=== PATIENT | female | born 1990 | race African-American/Black ===

== ENCOUNTER 2016-07-04 09:46 | Outpatient (CLI) | payer OTHER ==
[~2016-07-04 09:46] MED LIST: PERCOCET1 TA1 PO; ZANTAC 150 MAX150 MG PO
--- NOTE | 2016-07-04 10:56 | DIAGNOSTIC IMAGING REPORT ---
PROCEDURE: US OB 1ST TRIMESTER W/TRANSVAG INDICATION: OB dates TECHNIQUE: Shelby scale, color, and spectral Doppler transabdominal sonographic images of the first trimester gravid uterus were obtained. COMPARISON: None. FINDINGS: TRANSABDOMINAL SCANS: The gravid uterus is anteverted in position and contains a fundal gestational sac with a moderate residual response. No perigestational hemorrhage. The cervix is closed. A pole with an average crown-rump length of 7 mm is present. There is detectable cardiac activity in the fetus in a rate of 117 beats per minute. A yolk sac was visible. Maternal ovaries appear normal. Trace free pelvic fluid in the cul-de-sac. IMPRESSION: 1. Single living intrauterine with gestational age of 6 weeks and 4-day and estimated due date of 02/23/2017 2. Closed cervix and no perigestational hemorrhage.
== END 2016-07-04 23:00 ==
LOC: US SRH 09:46
DX: Z34.91 Encounter for supervision of normal pregnancy, unspecified, first trimester (principal); Z3A.01 Less than 8 weeks gestation of pregnancy

== ENCOUNTER 2016-08-25 21:30 | Emergency (ER) | payer OTHER ==
--- NOTE | 2016-08-25 23:35 | ED CLINICAL REPORT ---
Clinical Report - Physicians/Mid Levels [facility] [address] [place] [address] 08/25/2016 21:31 Patient: YULIANA HERNANDEZ Time Seen: 21:39; initial patient contact. Arrived- By private vehicle. Historian- patient. HISTORY OF PRESENT ILLNESS Chief Complaint: VAGINAL BLEEDING. This started about 2 days ago and still present. The symptoms are described as mild. Modifying factors. Not worsened by anything. Not relieved by anything. The patient has had mild, crampy, intermittent abdominal pain. The pain is described as located in the lower abdomen and radiating to the back. No nausea, vomiting or diarrhea. She has had abnormal bleeding and a scant amount of vaginal discharge. Currently . Receiving care by private doctor ( U/S a month ago). Similar symptoms previously: None. Recent medical care: Not recently seen/assessed. REVIEW OF SYSTEMS No nausea, vomiting, diarrhea, fever or chills. She has had a headache. All systems otherwise negative, except as recorded above. PAST HISTORY ( Ovarian Cyst. ADDITIONAL SURGERIES: Knee Surgery). Medications: Unisom Oral. Omeprazole Oral. Vit b6 . Plus Iron Oral. Allergies: No Known Drug Allergy. SOCIAL HISTORY Never smoker. No alcohol use or drug use. ADDITIONAL NOTES The nursing notes have been reviewed. PHYSICAL EXAM Vital Signs: 08/25/2016 21:45 BP: 119/68. HR: 81. RR: 16. O2 saturation: 100%. Temp: 98.3 F. Pain level now: 5/10. Have been reviewed as normal. Appearance: Alert. Oriented X3. No acute distress. HEENT: Normal external inspection. CVS: Heart sounds normal. Rate normal. Rhythm normal. Respiratory: No respiratory distress. Breath sounds normal. Abdomen: Soft. Mild tenderness in the suprapubic area and left lower quadrant. Bowel sounds normal. No organomegaly. No mass. : External inspection normal. A scant amount of thin, yellow and bloody vaginal discharge present. No vaginal bleeding. Cervical os closed. No cervical dilation. No tissue present. No cervicitis. No tenderness present on bimanual exam. Uterus not enlarged. No uterine tenderness. No tenderness with movement of the cervix. No adnexal tenderness. No adnexal mass/fullness. No pelvic mass. (Female RN Chantale Bazan present for exam). Skin: Skin warm and dry. Normal skin color. Extremities: No lower extremity edema. Neuro: Oriented X 3. LABS, X-RAYS, AND EKG Laboratory Tests: UA-Culture if indicated: (JEAN-PIERRE: 08/25/2016 22:40) ( [facility] [place] 08/25/2016 23:01) Final results Test Result Flag Units (Reference) URINE COLOR YELLOW URINE APPEARANCE CLEAR URINE GLUCOSE NEGATIVE (NEGATIVE) URINE BILIRUBIN NEGATIVE (NEGATIVE) URINE KETONE NEGATIVE (NEGATIVE) URINE SPECIFIC GRAVITY 1.015 (1.010-1.030) URINE PH 6.5 (5.0-8.0) URINE PROTEIN NEGATIVE (NEGATIVE) URINE UROBILINOGEN 0.2 EU/dL (0.2-1.0) URINE NITRITE NEGATIVE (NEGATIVE) URINE BLOOD TRACE-INTACT (NEGATIVE) URINE LEUK ESTERASE NEGATIVE (NEGATIVE) URINE RBC 0-1 rbc/hpf (0-1) URINE WBC 0-1 wbc/hpf (0-1) URINE EPITHELIAL CELLS 1-3 EPI/hpf (0-5) URINE BACTERIA NONE SEEN (NONE SEEN) URINE COMMENT CULT NOT INDICATED 1+ AMORPHOUSURINE CULTURES ARE SET-UP BASED ON THE FOLLOWING CRITERIA:POSITIVE NITRITEPOSITIVE LEUKOCYTE ESTERASEGREATER THAN 10 WHITE BLOOD CELLSMODERATE (2+) OR GREATER BACTERIA CBC w Diff: (JEAN-PIERRE: 08/25/2016 22:00) ( [facility] [place] 08/25/2016 22:15) Final results Test Result Flag Units (Reference) WHITE BLOOD COUNT 10.9 K/uL (4.5-11.5) RED BLOOD COUNT 4.24 M/uL (4.00-5.20) HEMOGLOBIN 12.0 gm/dL (12.0-16.0) HEMATOCRIT 35.6 L % (36.0-46.0) MEAN CELL VOLUME 84 fL (80-100) MEAN CORPUSCULAR HGB 28 pg (26-34) MEAN CORPUSCULAR HGB CONC 34 g/dL (31-37) RED CELL DISTRIBUTION WIDTH 13.6 % (11.6-14.8) PLATELET COUNT 427 H K/uL (150-400) NEUTROPHIL % 62.3 % (50-75) LYMPH % 27.1 % (25-40) MONO % 7.4 % (3-14) EOSINOPHIL % 1.5 % (0-4) BASOPHIL % 1.7 % (0-2) CMP: (JEAN-PIERRE: 08/25/2016 22:00) ( MsgRcvd 08/25/2016 23:02) Final results Test Result Flag Units (Reference) GLUCOSE 85 mg/dL (70-110) BUN 9 mg/dL (7-18) CREATININE 0.7 mg/dL (0.6-1.3) Estimated GFR >60 mL/min Estimated GFR- >60 mL/min Note: Persistent reduction over 3 months in eGFR<60 mL/min/1.73 m2 defines CKD. Patients with eGFR values>=60 mL/min/1.73 m2 may also have CKD if evidence ofpersistent proteinuria. Additional information may be foundat www.[email or web address].org. SODIUM 138 mmol/L (136-145) POTASSIUM 4.2 mmol/L (3.5-5.1) CHLORIDE 103 mmol/L (98-107) CARBON DIOXIDE 26 mmol/L (21-32) CALCIUM 9.0 mg/dL (8.5-10.1) TOTAL PROTEIN 6.8 g/dL (6.4-8.2) ALBUMIN 3.0 L g/dL (3.3-5.0) BILIRUBIN, TOTAL 0.2 mg/dL (0.0-1.0) ALKALINE PHOSPHATASE 52 U/L (46-116) AST (SGOT) 14 L U/L (15-37) ALT (SGPT) 20 U/L (12-78) BETA HCG, QUANTITATIVE 52320 mIU/mL REFERENCE RANGE:Adult Males: <2 mIU/mLNon- Females: <6 mIU/mL Females:Approximate Approximate hCGGestational Age Range (mIU/mL) 0-1 week 0-501-2 weeks 40-3002-3 weeks 100-85907-3 weeks 500-66070-4 months 5,000-200,0002-3 months 10,000-100,0002nd trimester 3,000-50,0003rd trimester 1,000-50,000 Wet Prep: (JEAN-PIERRE: 08/25/2016 22:10) ( [facility] [place] 08/25/2016 22:40) Final results SPECIMEN DESCRIPTION: ... Test Result Flag Units (Reference) WET MOUNT CLUE CELLS:: RARE * EPITHELIAL CELLS: MANY -- SOURCE?: CERVIX WHITE BLOOD CELLS: MODERATE TRICHOMONAS:: NONE -- YEAST:: NONE Type & Rh: (JEAN-PIERRE: 08/25/2016 22:00) ( NcgRcvd 08/25/2016 22:33) Final results Test Result Flag Units (Reference) PATIENT BLOOD TYPE AB Positive . PROGRESS AND PROCEDURES Course of Care: Unable to obtain heart tones. Took full size U/S into room and FHT's 140 with positive movement. Disposition: Discharged home in good condition. Condition: good. CLINICAL IMPRESSION Acute mild bacterial vulvovaginitis INSTRUCTIONS Your Current Medications: CONTINUE TAKING THE FOLLOWING MEDICATIONS: Omeprazole Oral. Plus Iron Oral. Unisom Oral. Vit b6 *. Prescription Medications: Metronidazole 500 mg: Take 1 tablet orally every 12 hours for 7 days. No refill Follow-up: Follow up with your doctor in about two days. Call for an appointment. Screening today revealed the patient's blood pressure to be in the normal range. (Electronically signed by Frederick Mcneil Dr. 08/26/2016 4:30)
--- NOTE | 2016-08-25 23:35 | ED CLINICAL REPORT ---
Clinical Report - Physicians/Mid Levels [facility] [address] [place] [address] 08/25/2016 21:31 Patient: YULIANA HERNANDEZ Time Seen: 21:39; initial patient contact. Arrived- By private vehicle. Historian- patient. HISTORY OF PRESENT ILLNESS Chief Complaint: VAGINAL BLEEDING. This started about 2 days ago and still present. The symptoms are described as mild. Modifying factors. Not worsened by anything. Not relieved by anything. The patient has had mild, crampy, intermittent abdominal pain. The pain is described as located in the lower abdomen and radiating to the back. No nausea, vomiting or diarrhea. She has had abnormal bleeding and a scant amount of vaginal discharge. Currently . Receiving care by private doctor ( U/S a month ago). Similar symptoms previously: None. Recent medical care: Not recently seen/assessed. REVIEW OF SYSTEMS No nausea, vomiting, diarrhea, fever or chills. She has had a headache. All systems otherwise negative, except as recorded above. PAST HISTORY ( Ovarian Cyst. ADDITIONAL SURGERIES: Knee Surgery). Medications: Unisom Oral. Omeprazole Oral. Vit b6 . Plus Iron Oral. Allergies: No Known Drug Allergy. SOCIAL HISTORY Never smoker. No alcohol use or drug use. ADDITIONAL NOTES The nursing notes have been reviewed. PHYSICAL EXAM Vital Signs: 08/25/2016 21:45 BP: 119/68. HR: 81. RR: 16. O2 saturation: 100%. Temp: 98.3 F. Pain level now: 5/10. Have been reviewed as normal. Appearance: Alert. Oriented X3. No acute distress. HEENT: Normal external inspection. CVS: Heart sounds normal. Rate normal. Rhythm normal. Respiratory: No respiratory distress. Breath sounds normal. Abdomen: Soft. Mild tenderness in the suprapubic area and left lower quadrant. Bowel sounds normal. No organomegaly. No mass. : External inspection normal. A scant amount of thin, yellow and bloody vaginal discharge present. No vaginal bleeding. Cervical os closed. No cervical dilation. No tissue present. No cervicitis. No tenderness present on bimanual exam. Uterus not enlarged. No uterine tenderness. No tenderness with movement of the cervix. No adnexal tenderness. No adnexal mass/fullness. No pelvic mass. (Female RN Chantale Bazan present for exam). Skin: Skin warm and dry. Normal skin color. Extremities: No lower extremity edema. Neuro: Oriented X 3. LABS, X-RAYS, AND EKG Laboratory Tests: UA-Culture if indicated: (JEAN-PIERRE: 08/25/2016 22:40) ( [facility] [place] [place] 08/25/2016 23:01) Final results Test Result Flag Units (Reference) URINE COLOR YELLOW URINE APPEARANCE CLEAR URINE GLUCOSE NEGATIVE (NEGATIVE) URINE BILIRUBIN NEGATIVE (NEGATIVE) URINE KETONE NEGATIVE (NEGATIVE) URINE SPECIFIC GRAVITY 1.015 (1.010-1.030) URINE PH 6.5 (5.0-8.0) URINE PROTEIN NEGATIVE (NEGATIVE) URINE UROBILINOGEN 0.2 EU/dL (0.2-1.0) URINE NITRITE NEGATIVE (NEGATIVE) URINE BLOOD TRACE-INTACT (NEGATIVE) URINE LEUK ESTERASE NEGATIVE (NEGATIVE) URINE RBC 0-1 rbc/hpf (0-1) URINE WBC 0-1 wbc/hpf (0-1) URINE EPITHELIAL CELLS 1-3 EPI/hpf (0-5) URINE BACTERIA NONE SEEN (NONE SEEN) URINE COMMENT CULT NOT INDICATED 1+ AMORPHOUSURINE CULTURES ARE SET-UP BASED ON THE FOLLOWING CRITERIA:POSITIVE NITRITEPOSITIVE LEUKOCYTE ESTERASEGREATER THAN 10 WHITE BLOOD CELLSMODERATE (2+) OR GREATER BACTERIA CBC w Diff: (JEAN-PIERRE: 08/25/2016 22:00) ( [facility] [place]/25/2016 22:15) Final results Test Result Flag Units (Reference) WHITE BLOOD COUNT 10.9 K/uL (4.5-11.5) RED BLOOD COUNT 4.24 M/uL (4.00-5.20) HEMOGLOBIN 12.0 gm/dL (12.0-16.0) HEMATOCRIT 35.6 L % (36.0-46.0) MEAN CELL VOLUME 84 fL (80-100) MEAN CORPUSCULAR HGB 28 pg (26-34) MEAN CORPUSCULAR HGB CONC 34 g/dL (31-37) RED CELL DISTRIBUTION WIDTH 13.6 % (11.6-14.8) PLATELET COUNT 427 H K/uL (150-400) NEUTROPHIL % 62.3 % (50-75) LYMPH % 27.1 % (25-40) MONO % 7.4 % (3-14) EOSINOPHIL % 1.5 % (0-4) BASOPHIL % 1.7 % (0-2) CMP: (JEAN-PIERRE: 08/25/2016 22:00) ( MsgRcvd 08/25/2016 23:02) Final results Test Result Flag Units (Reference) GLUCOSE 85 mg/dL (70-110) BUN 9 mg/dL (7-18) CREATININE 0.7 mg/dL (0.6-1.3) Estimated GFR >60 mL/min Estimated GFR- >60 mL/min Note: Persistent reduction over 3 months in eGFR<60 mL/min/1.73 m2 defines CKD. Patients with eGFR values>=60 mL/min/1.73 m2 may also have CKD if evidence ofpersistent proteinuria. Additional information may be foundat [email or web address].org. SODIUM 138 mmol/L (136-145) POTASSIUM 4.2 mmol/L (3.5-5.1) CHLORIDE 103 mmol/L (98-107) CARBON DIOXIDE 26 mmol/L (21-32) CALCIUM 9.0 mg/dL (8.5-10.1) TOTAL PROTEIN 6.8 g/dL (6.4-8.2) ALBUMIN 3.0 L g/dL (3.3-5.0) BILIRUBIN, TOTAL 0.2 mg/dL (0.0-1.0) ALKALINE PHOSPHATASE 52 U/L (46-116) AST (SGOT) 14 L U/L (15-37) ALT (SGPT) 20 U/L (12-78) BETA HCG, QUANTITATIVE 30058 mIU/mL REFERENCE RANGE:Adult Males: <2 mIU/mLNon- Females: <6 mIU/mL Females:Approximate Approximate hCGGestational Age Range (mIU/mL) 0-1 week 0-501-2 weeks 40-3002-3 weeks 100-60539-6 weeks 500-80486-6 months 5,000-200,0002-3 months 10,000-100,0002nd trimester 3,000-50,0003rd trimester 1,000-50,000 Wet Prep: (JEAN-PIERRE: 08/25/2016 22:10) ( [facility] [place]/25/2016 22:40) Final results SPECIMEN DESCRIPTION: ... Test Result Flag Units (Reference) WET MOUNT CLUE CELLS:: RARE * EPITHELIAL CELLS: MANY -- SOURCE?: CERVIX WHITE BLOOD CELLS: MODERATE TRICHOMONAS:: NONE -- YEAST:: NONE Type & Rh: (JEAN-PIERRE: 08/25/2016 22:00) ( MdgRcvd 08/25/2016 22:33) Final results Test Result Flag Units (Reference) PATIENT BLOOD TYPE AB Positive . PROGRESS AND PROCEDURES Course of Care: Unable to obtain heart tones. Took full size U/S into room and FHT's 140 with positive movement. Disposition: Discharged home in good condition. Condition: good. CLINICAL IMPRESSION Acute mild bacterial vulvovaginitis INSTRUCTIONS Your Current Medications: CONTINUE TAKING THE FOLLOWING MEDICATIONS: Omeprazole Oral. Plus Iron Oral. Unisom Oral. Vit b6 *. Prescription Medications: Metronidazole 500 mg: Take 1 tablet orally every 12 hours for 7 days. No refill Follow-up: Follow up with your doctor in about two days. Call for an appointment. Screening today revealed the patient's blood pressure to be in the normal range. (Electronically signed by Frederick Mcneil Dr. 08/26/2016 4:30)
--- NOTE | 2016-08-25 23:35 | ED ORDER SUMMARY ---
..... Patient: YULIANA HERNANDEZ OrderSheet [facility] VisitID: [id number] [place] [address] 26y, F Registration Date/Time: 08/25/2016 ORDER SHEET Weight: 86.1 kg (stated) Allergies: No Known Drug Allergy GENERAL ORDERS: Serum Quantitative Urgent (21:56 08/25/2016 Roldan Garcia) (Ack 21:59 SRedmond) GC/Chlamydia (Cervix) (...) Urgent (21:56 08/25/2016 Roldan Garcia) (Ack 21:59 SRedmond) (22:42 TChapman R.N.) Wet Prep (Cervix) (...) Urgent (21:56 08/25/2016 Roldan Garcia) (Ack 21:59 SRedmond) (22:43 SRedmond) CBC w Diff Urgent (21:57 08/25/2016 Roldan Garcia) (Ack 21:59 SRedmond) (22:41 TChapman R.N.) CMP Urgent (21:57 08/25/2016 Roldan Garcia) (Ack 21:59 SRedmond) (23:10 TChapman R.N.) UA-Culture if indicated Urgent (21:57 08/25/2016 Roldan Garcia) (Ack 21:59 SRedmond) (23:01 TChapman R.N.) Type & Rh Urgent (21:57 08/25/2016 Roldan Garcia) (Ack 21:59 SRedmond) (22:44 SRedmond) Pelvic Exam Setup (21:57 08/25/2016 Roldan Garcia) (Ack 21:59 SRedmond) (22:25 SRedmond) MEDICATION ORDERS: Metronidazole PO 500 mg (NOW) (23:35 08/25/2016 Roldan Garcia) (Ack 23:36 TChapman R.N.) (23:40 TChapman R.N.) IV FLUIDS: IV Saline Lock (21:57 08/25/2016 Roldan Garcia) (22:08 TChapman R.N.) ORDER SHEET NOTES: [Electronically signed by Chantale Lopez R.N. (23:45 08/25/2016)] [Electronically signed by Frederick Mcneil Dr. (04:30 08/26/2016)] [Electronically locked/signed by Chantale Lopez R.N. (23:45 08/25/2016)]
--- NOTE | 2016-08-25 23:35 | ED ORDER SUMMARY ---
..... Patient: YULIANA HERNANDEZ OrderSheet [facility] VisitID: [id number] [place] [address] 26y, F Registration Date/Time: 08/25/2016 ORDER SHEET Weight: 86.1 kg (stated) Allergies: No Known Drug Allergy GENERAL ORDERS: Serum Quantitative Urgent (21:56 08/25/2016 Roldan Garcia) (Ack 21:59 SRedmond) GC/Chlamydia (Cervix) (...) Urgent (21:56 08/25/2016 Roldan Garcia) (Ack 21:59 SRedmond) (22:42 TChapman R.N.) Wet Prep (Cervix) (...) Urgent (21:56 08/25/2016 Roldan Garcia) (Ack 21:59 SRedmond) (22:43 SRedmond) CBC w Diff Urgent (21:57 08/25/2016 Roldan Garcia) (Ack 21:59 SRedmond) (22:41 TChapman R.N.) CMP Urgent (21:57 08/25/2016 Roldan Garcia) (Ack 21:59 SRedmond) (23:10 TChapman R.N.) UA-Culture if indicated Urgent (21:57 08/25/2016 Roldan Garcia) (Ack 21:59 SRedmond) (23:01 TChapman R.N.) Type & Rh Urgent (21:57 08/25/2016 Roldan Garcia) (Ack 21:59 SRedmond) (22:44 SRedmond) Pelvic Exam Setup (21:57 08/25/2016 Roldan Garcia) (Ack 21:59 SRedmond) (22:25 SRedmond) MEDICATION ORDERS: Metronidazole PO 500 mg (NOW) (23:35 08/25/2016 Roldan Garcia) (Ack 23:36 TChapman R.N.) (23:40 TChapman R.N.) IV FLUIDS: IV Saline Lock (21:57 08/25/2016 Roldan Garcia) (22:08 TChapman R.N.) ORDER SHEET NOTES: [Electronically signed by Chantale Lopez R.N. (23:45 08/25/2016)] [Electronically signed by Frederick Mcneil Dr. (04:30 08/26/2016)] [Electronically locked/signed by Chantale Lopez R.N. (23:45 08/25/2016)]
--- NOTE | 2016-08-25 23:35 | ED NURSING NOTES ---
Clinical Report - [facility] [place] [address] 08/25/2016 21:31 Patient: YULIANA HERNANDEZ TRIAGE Triage time 21:46. Chief Complaint: ABDOMINAL PAIN and CRAMPS and SPOTTING. --21:50 Chantale Lopez R.N. 21:45 08/25/16. BP: 119/68. HR: 81 (normal rate). RR: 16. O2 saturation: 100% on room air. Temp: 98.3 F (oral). Pain level now: 09/25. --21:50 Chantale Lopez R.N. Weight: 86.1 kg stated. Height/Length: 66 inches Per Patient. BMI: 30.7. --21:45 Chantale Lopez R.N. Medications Plus Iron Oral. --21:47 Chantale Lopez R.N. Vit b6 . --21:47 Chantale Lopez R.N. Omeprazole Oral. --21:47 Chantale Lopez R.N. Unisom Oral. --21:48 Chantale Lopez R.N. Allergies No Known Drug Allergy. --21:48 Chantale Lopez R.N. History Arrived by private vehicle. Historian: patient. Onset. (2 days). No vomiting or fever. PAST MEDICAL HX: The patient has had care. SOCIAL HX: Never smoker. No alcohol use or drug use. No infectious disease exposure. FALL RISK ASSESSMENT: Fall risk assessment completed. No fall risk identified. NUTRITIONAL RISK ASSESSMENT: The nutritional risk assessment revealed no deficiencies. FUNCTIONAL ASSESSMENT: Functional assessment: no impairments noted. LEARNING NEEDS ASSESSMENT: The learning needs assessment revealed no barriers. SKIN INTEGRITY ASSESSMENT: Skin integrity risk assessment completed. No skin integrity risk identified. --21:50 Chantale Lopez R.N. PROBLEMS: Ovarian Cyst. --21:48 Chantale Lopez R.N. ADDITIONAL SURGERIES: Knee Surgery. --21:49 Chantale Lopez R.N. PHYSICAL ASSESSMENT GENERAL / NEURO / PSYCH: Alert. Oriented X 4. Appears in no acute distress. HEENT: Mucous membranes are pink. RESPIRATORY: Respirations not labored. CVS: Capillary refill less than 2 seconds. GI / : Abdomen soft and nontender. Bowel sounds within normal limits. Vaginal bleeding present. EXTREMITIES: No lower extremity edema. SKIN: Skin is warm and dry. --21:50 Chantale Lopez R.N. Ambulatory to room. --21:50 Chantale Lopez R.N. NURSING PROGRESS NOTES The plan of care for this patient has been created. Patient gowned. Head of bed elevated. Call light placed in reach. Side rails up x 1. Bed placed in lowest position. Brakes of bed on. Patient ready for evaluation- ED physician notified. --21:50 Chantale Lopez R.N. 22:03 08/25/2016 Site #1 started via IV in the right antecubital space with an 22g angiocath, with aseptic technique; one attempt. Blood drawn: rainbow set. Saline lock flushed with 5 mL saline. --22:08 Chantale Lopez R.N. 20:10. PELVIC EXAM: Pelvic exam performed by ED physician. Assisted by a nurse. Preparation: pelvic tray and culture medium; patient placed in lithotomy position. Procedure: speculum and bimanual exam. Light amount of dark vaginal bleeding noted. Specimens collected and sent to lab: GC, chlamydia and wet prep. Status post-procedure: she was stable. Total time of assist / procedure: 15 minutes. --22:18 Chantale Lopez R.N. 22:43 08/25/16. Patient ID band checked for patient name and birthdate: patient confirmed. Instructions provided to collect clean catch urine and patient verbalized understanding. Clean catch urine collected with return of yellow-colored clear urine; sample sent to lab. Specimen labeled in the presence of the patient. --22:43 Chantale Lopez R.N. Bedside pelvic sonogram performed by ED physician. ( movement seen and Heart rate 140). --23:36 Chantale Lopez R.N. 23:40 08/25/2016 Metronidazole PO 500 mg given. Allergies verified and confirmed 5 rights. --23:40 Chantale Lopez R.N. 23:40 08/25/16. BP: 117/70. HR: 82. RR: 16. O2 saturation: 100%. Temp: 98.6 F. --23:43 Chantale Lopez R.N. DISPOSITION / DISCHARGE 23:44 08/25/16. BP: 117/70. HR: 80. RR: 16. O2 saturation: 100%. Temp: 98.6 F. --23:45 Chantale Lopez R.N. 23:40 08/25/2016 Site #1 removed upon discharge. Bandaid applied. --23:45 Chantale Lopez R.N. 23:44 08/25/16. Departure time: 2345. Condition at departure: unchanged. The goals identified in the patient's plan of care were met. No learning barriers present. Discharge instructions provided and reviewed with the patient. Reviewed medication(s) side effects and precautions information. Prescription(s) given to the patient. Patient verbalized understanding. Written instructions provided in Portuguese. The patient was discharged home and accompanied by sanitation worker. She left the Emergency Department ambulatory and via private vehicle. Spouse driving. --23:45 Chantale Lopez R.N. Locked/Released at 08/25/2016 23:46 by Chantale Lopez R.N.
--- NOTE | 2016-08-26 04:30 | ED MAR SUMMARY ---
..... Medication Administration Record [facility] [address] [place] [address] Patient: YULIANA HERNANDEZ Visit ID: [id number] 26y, F Weight: 86.1 kg Height/Length: 66 in BMI: 30.7 ALLERGIES: No Known Drug Allergy Given 23:40 08/25/2016 Chantale Lopez R.N. Medication Administered: METRONIDAZOLE [PO], Dose: 500 mg PO. Medication Ordered: Metronidazole PO 500 mg (NOW).
--- NOTE | 2016-08-26 04:30 | ED DISCHARGE INSTRUCTIONS ---
Patient: YULIANA HERNANDEZ General Instructions [facility] VisitID: [id number] [place] [address] 26y, F Registration Date/Time: 08/25/2016 Acute mild bacterial vulvovaginitis INSTRUCTIONS Your Current Medications: CONTINUE TAKING THE FOLLOWING MEDICATIONS: Omeprazole Oral. Plus Iron Oral. Unisom Oral. Vit b6 *. Prescription Medications: Metronidazole 500 mg: Take 1 tablet orally every 12 hours for 7 days. No refill Follow-up: Follow up with your doctor in about two days. Call for an appointment. Screening today revealed the patient's blood pressure to be in the normal range. ADDITIONAL INFORMATION Bacterial Vaginosis You have a bacterial infection of the vagina called bacterial vaginosis (BV). It may also be called gardnerella or non-specific vaginitis. BV occurs when the "bad" bacteria outnumber the "good" bacteria that are normally present in the vagina. Symptoms include foul-smelling vaginal discharge (most noticeable after vaginal intercourse). There may also be burning with urination. The burning is caused as the urine passes over the inflamed outer vaginal area. The cause of bacterial vaginosis is not certain. However, your risk is higher if you recently began a new sexual relationship, or have had many sex partners in the past. Your risk is also higher if you douche often. While bacterial vaginosis most often occurs only in sexually active women, this is not a true sexually transmitted disease. You did not get this from your partner. You cannot give it to your partner. The infection may be related to temporary changes in the pH of vaginal fluids after being exposed to semen. Home Care: Keep the genital area clean and free of discharge. Do this by wearing an absorbent sanitary pad and changing it often. Shower daily. When you shower, clean the outer vaginal area with plain soap and water. Do not douche during treatment unless advised to do so by your doctor. Routine douching after treatment is no longer recommended to clean the vagina. It raises your risk of vaginal infection and pelvic inflammatory disease. Avoid having sex until you have finished all antibiotic medicine and all symptoms have gone away. Wear cotton underwear or cotton-lined panty hose. Dont wear pants that are too tight. Limiting the number of sex partners you have lowers your risk of this and other vaginal infections, STDs, and HIV. Take all medicine as directed until it is gone, even if you are feeling better. If you dont do this, symptoms might return. Follow Up with your doctor if symptoms dont go away after the medicine is finished. Get Prompt Medical Attention if any of the following occur: Fever of 100.4F (38C) or higher, or as directed by your healthcare provider Lower abdominal pain Rash or joint pain Painful sores around the outer vaginal area or on your partners penis Metronidazole Oral tablet What is this medicine? METRONIDAZOLE (me troe NI da zole) is an antiinfective. It is used to treat certain kinds of bacterial and protozoal infections. It will not work for colds, flu, or other viral infections. How should I use this medicine? Take this medicine by mouth with a full glass of water. Follow the directions on the prescription label. Take your medicine at regular intervals. Do not take your medicine more often than directed. Take all of your medicine as directed even if you think you are better. Do not skip doses or stop your medicine early. Talk to your semiconductor equipment technician regarding the use of this medicine in children. Special care may be needed. What side effects may I notice from receiving this medicine? Side effects that you should report to your doctor or health resident care manager as soon as possible: allergic reactions like skin rash or hives, swelling of the face, lips, or tongue confusion, clumsiness difficulty speaking discolored or sore mouth dizziness fever, infection numbness, tingling, pain or weakness in the hands or feet trouble passing urine or change in the amount of urine redness, blistering, peeling or loosening of the skin, including inside the mouth seizures unusually weak or tired vaginal irritation, dryness, or discharge Side effects that usually do not require medical attention (report to your doctor or health resident care manager if they continue or are bothersome): diarrhea headache irritability metallic taste nausea stomach pain or cramps trouble sleeping What may interact with this medicine? Do not take this medicine with any of the following medications: alcohol or any product that contains alcohol amprenavir oral solution cisapride disulfiram dofetilide dronedarone paclitaxel injection pimozide ritonavir oral solution sertraline oral solution sulfamethoxazole-trimethoprim injection thioridazine ziprasidone This medicine may also interact with the following medications: cimetidine lithium other medicines that prolong the QT interval (cause an abnormal heart rhythm) phenobarbital phenytoin warfarin What if I miss a dose? If you miss a dose, take it as soon as you can. If it is almost time for your next dose, take only that dose. Do not take double or extra doses. Where should I keep my medicine? Keep out of the reach of children. Store at room temperature below 25 degrees C (77 degrees F). Protect from light. Keep container tightly closed. Throw away any unused medicine after the expiration date. What should I tell my health care provider before I take this medicine? They need to know if you have any of these conditions: anemia or other blood disorders disease of the nervous system fungal or yeast infection if you drink alcohol containing drinks liver disease seizures an unusual or allergic reaction to metronidazole, or other medicines, foods, dyes, or preservatives or trying to get breast-feeding What should I watch for while using this medicine? Tell your doctor or health resident care manager if your symptoms do not improve or if they get worse. You may get drowsy or dizzy. Do not drive, use machinery, or do anything that needs mental alertness until you know how this medicine affects you. Do not stand or sit up quickly, especially if you are an older patient. This reduces the risk of dizzy or fainting spells. Avoid alcoholic drinks while you are taking this medicine and for three days afterward. Alcohol may make you feel dizzy, sick, or flushed. If you are being treated for a sexually transmitted disease, avoid sexual contact until you have finished your treatment. Your sexual partner may also need treatment. You have been given the following additional information: Vaginitis, Bacterial Metronidazole Oral tablet (Electronically signed by Frederick Mcneil Dr. 08/26/2016 4:30)
--- NOTE | 2016-08-26 04:30 | ED MED RECONCILIATION SUMMARY ---
Patient: YULIANA HERNANDEZ Medication Reconciliation Report [facility] VisitID: [id number] [address] [place] [address] 26y, F Registration Date/Time: 08/25/2016 Weight: 86.1 kg Height/Length: 66 in. BMI: 30.7 ALLERGIES: No Known Drug Allergy The patient's Home Medications are listed below: CONTINUE TAKING THE FOLLOWING MEDICATIONS: Omeprazole Oral Plus Iron Oral Unisom Oral Vit b6 The source(s) of the original Home Medication information: Not obtained. The following Medications were given to the patient in the Emergency Department: Metronidazole [PO] PO 500 mg, administered: 08/25/2016 11:40:00 PM The following Medications were prescribed to the patient: Metronidazole 500 mg: Take 1 tablet orally every 12 hours for 7 days. No refill -- Frederick Mcneil Dr.
--- NOTE | 2016-08-26 04:30 | ED MED RECONCILIATION SUMMARY ---
Patient: YULIANA HERNANDEZ Medication Reconciliation Report [facility] VisitID: [id number] [address] [place] [address] 26y, F Registration Date/Time: 08/25/2016 Weight: 86.1 kg Height/Length: 66 in. BMI: 30.7 ALLERGIES: No Known Drug Allergy The patient's Home Medications are listed below: CONTINUE TAKING THE FOLLOWING MEDICATIONS: Omeprazole Oral Plus Iron Oral Unisom Oral Vit b6 The source(s) of the original Home Medication information: Not obtained. The following Medications were given to the patient in the Emergency Department: Metronidazole [PO] PO 500 mg, administered: 08/25/2016 11:40:00 PM The following Medications were prescribed to the patient: Metronidazole 500 mg: Take 1 tablet orally every 12 hours for 7 days. No refill -- Frederick Mcneil Dr.
--- NOTE | 2016-08-26 04:30 | ED DISCHARGE INSTRUCTIONS ---
Patient: YULIANA HERNANDEZ General Instructions [facility] VisitID: [id number] [place] [address] 26y, F Registration Date/Time: 08/25/2016 Acute mild bacterial vulvovaginitis INSTRUCTIONS Your Current Medications: CONTINUE TAKING THE FOLLOWING MEDICATIONS: Omeprazole Oral. Plus Iron Oral. Unisom Oral. Vit b6 *. Prescription Medications: Metronidazole 500 mg: Take 1 tablet orally every 12 hours for 7 days. No refill Follow-up: Follow up with your doctor in about two days. Call for an appointment. Screening today revealed the patient's blood pressure to be in the normal range. ADDITIONAL INFORMATION Bacterial Vaginosis You have a bacterial infection of the vagina called bacterial vaginosis (BV). It may also be called gardnerella or non-specific vaginitis. BV occurs when the "bad" bacteria outnumber the "good" bacteria that are normally present in the vagina. Symptoms include foul-smelling vaginal discharge (most noticeable after vaginal intercourse). There may also be burning with urination. The burning is caused as the urine passes over the inflamed outer vaginal area. The cause of bacterial vaginosis is not certain. However, your risk is higher if you recently began a new sexual relationship, or have had many sex partners in the past. Your risk is also higher if you douche often. While bacterial vaginosis most often occurs only in sexually active women, this is not a true sexually transmitted disease. You did not get this from your partner. You cannot give it to your partner. The infection may be related to temporary changes in the pH of vaginal fluids after being exposed to semen. Home Care: Keep the genital area clean and free of discharge. Do this by wearing an absorbent sanitary pad and changing it often. Shower daily. When you shower, clean the outer vaginal area with plain soap and water. Do not douche during treatment unless advised to do so by your doctor. Routine douching after treatment is no longer recommended to clean the vagina. It raises your risk of vaginal infection and pelvic inflammatory disease. Avoid having sex until you have finished all antibiotic medicine and all symptoms have gone away. Wear cotton underwear or cotton-lined panty hose. Dont wear pants that are too tight. Limiting the number of sex partners you have lowers your risk of this and other vaginal infections, STDs, and HIV. Take all medicine as directed until it is gone, even if you are feeling better. If you dont do this, symptoms might return. Follow Up with your doctor if symptoms dont go away after the medicine is finished. Get Prompt Medical Attention if any of the following occur: Fever of 100.4F (38C) or higher, or as directed by your healthcare provider Lower abdominal pain Rash or joint pain Painful sores around the outer vaginal area or on your partners penis Metronidazole Oral tablet What is this medicine? METRONIDAZOLE (me troe NI da zole) is an antiinfective. It is used to treat certain kinds of bacterial and protozoal infections. It will not work for colds, flu, or other viral infections. How should I use this medicine? Take this medicine by mouth with a full glass of water. Follow the directions on the prescription label. Take your medicine at regular intervals. Do not take your medicine more often than directed. Take all of your medicine as directed even if you think you are better. Do not skip doses or stop your medicine early. Talk to your technical sales advisor regarding the use of this medicine in children. Special care may be needed. What side effects may I notice from receiving this medicine? Side effects that you should report to your doctor or health animal caregiver as soon as possible: allergic reactions like skin rash or hives, swelling of the face, lips, or tongue confusion, clumsiness difficulty speaking discolored or sore mouth dizziness fever, infection numbness, tingling, pain or weakness in the hands or feet trouble passing urine or change in the amount of urine redness, blistering, peeling or loosening of the skin, including inside the mouth seizures unusually weak or tired vaginal irritation, dryness, or discharge Side effects that usually do not require medical attention (report to your doctor or health animal caregiver if they continue or are bothersome): diarrhea headache irritability metallic taste nausea stomach pain or cramps trouble sleeping What may interact with this medicine? Do not take this medicine with any of the following medications: alcohol or any product that contains alcohol amprenavir oral solution cisapride disulfiram dofetilide dronedarone paclitaxel injection pimozide ritonavir oral solution sertraline oral solution sulfamethoxazole-trimethoprim injection thioridazine ziprasidone This medicine may also interact with the following medications: cimetidine lithium other medicines that prolong the QT interval (cause an abnormal heart rhythm) phenobarbital phenytoin warfarin What if I miss a dose? If you miss a dose, take it as soon as you can. If it is almost time for your next dose, take only that dose. Do not take double or extra doses. Where should I keep my medicine? Keep out of the reach of children. Store at room temperature below 25 degrees C (77 degrees F). Protect from light. Keep container tightly closed. Throw away any unused medicine after the expiration date. What should I tell my health care provider before I take this medicine? They need to know if you have any of these conditions: anemia or other blood disorders disease of the nervous system fungal or yeast infection if you drink alcohol containing drinks liver disease seizures an unusual or allergic reaction to metronidazole, or other medicines, foods, dyes, or preservatives or trying to get breast-feeding What should I watch for while using this medicine? Tell your doctor or health animal caregiver if your symptoms do not improve or if they get worse. You may get drowsy or dizzy. Do not drive, use machinery, or do anything that needs mental alertness until you know how this medicine affects you. Do not stand or sit up quickly, especially if you are an older patient. This reduces the risk of dizzy or fainting spells. Avoid alcoholic drinks while you are taking this medicine and for three days afterward. Alcohol may make you feel dizzy, sick, or flushed. If you are being treated for a sexually transmitted disease, avoid sexual contact until you have finished your treatment. Your sexual partner may also need treatment. You have been given the following additional information: Vaginitis, Bacterial Metronidazole Oral tablet (Electronically signed by Frederick Mcneil Dr. 08/26/2016 4:30)
--- NOTE | 2016-08-26 04:30 | ED MAR SUMMARY ---
..... Medication Administration Record [facility] [address] [place] [address] Patient: YULIANA HERNANDEZ Visit ID: [id number] 26y, F Weight: 86.1 kg Height/Length: 66 in BMI: 30.7 ALLERGIES: No Known Drug Allergy Given 23:40 08/25/2016 Chantale Lopez R.N. Medication Administered: METRONIDAZOLE [PO], Dose: 500 mg PO. Medication Ordered: Metronidazole PO 500 mg (NOW).
== END 2016-08-25 23:45 | disposition home or self-care (01) ==
LOC: ED SRH 21:30
DX: O23.591 Infection of other part of genital tract in pregnancy, first trimester (principal); B96.89 Other specified bacterial agents as the cause of diseases classified elsewhere; Z3A.01 Less than 8 weeks gestation of pregnancy
CPT/HCPCS: 90001; 90004; 90100; 90155; 90195; 90197; 91227; 91228; 95059

== ENCOUNTER 2016-10-01 08:50 | Outpatient (CLI) | payer OTHER ==
--- NOTE | 2016-10-01 10:16 | DIAGNOSTIC IMAGING REPORT ---
PROCEDURE: US OB DETAILED ANATOMIC INDICATION: ANATOMY TECHNIQUE: Shelby scale, color, and spectral Doppler images of the second trimester gravid uterus were obtained. COMPARISON: OB ultrasound 07/04/2016 FINDINGS: Single intrauterine with breech presentation, left posterior placenta without previa and heart rate of 158 bpm. Amniotic fluid is unremarkable. Normal closed cervix measures 4.7 cm. The anatomic survey, including the intracranial anatomy, facial structures, nuchal region, spine, tqxl-[id number] view, outflow tracts, chest and diaphragm, stomach and abdomen, three-vessel cord and cord insertion, bladder and pelvis, kidneys and extremities, is within normal limits. BPD 4.1 cm, 18 weeks 4 days; head circumference 15.9 cm, 18 weeks 5 days; abdominal circumference 14.2 cm, 19 weeks 4 days; femur length 3.1 cm, 19 weeks 5 days. Composite age 19 weeks 1 day. KO 02/24/2017. IMPRESSION: 1. Single live intrauterine , breech, 19 weeks 1 day 2. KO 02/24/2017, normal interval growth 3. anatomic survey within normal limits
--- NOTE | 2016-10-01 10:16 | DIAGNOSTIC IMAGING REPORT ---
PROCEDURE: US OB DETAILED ANATOMIC INDICATION: ANATOMY TECHNIQUE: Shelby scale, color, and spectral Doppler images of the second trimester gravid uterus were obtained. COMPARISON: OB ultrasound 07/04/2016 FINDINGS: Single intrauterine with breech presentation, left posterior placenta without previa and heart rate of 158 bpm. Amniotic fluid is unremarkable. Normal closed cervix measures 4.7 cm. The anatomic survey, including the intracranial anatomy, facial structures, nuchal region, spine, ijde-[id number]-iwcxz view, outflow tracts, chest and diaphragm, stomach and abdomen, three-vessel cord and cord insertion, bladder and pelvis, kidneys and extremities, is within normal limits. BPD 4.1 cm, 18 weeks 4 days; head circumference 15.9 cm, 18 weeks 5 days; abdominal circumference 14.2 cm, 19 weeks 4 days; femur length 3.1 cm, 19 weeks 5 days. Composite age 19 weeks 1 day. KO 02/24/2017. IMPRESSION: 1. Single live intrauterine , breech, 19 weeks 1 day 2. KO 02/24/2017, normal interval growth 3. anatomic survey within normal limits
== END 2016-10-01 23:00 ==
LOC: US SRH 08:50
DX: O32.1XX0 Maternal care for breech presentation, not applicable or unspecified (principal); Z3A.19 19 weeks gestation of pregnancy